=== PATIENT | male | born 1965 | race African-American/Black ===

== ENCOUNTER 2019-12-29 19:04 | Inpatient (IN) | payer OTHER ==
[2019-12-29 20:08] VITALS: BMI 25.7
--- NOTE | 2019-12-29 21:03 | HP ---
CIWA Score - Admission Criteria [facility]ASAS Guidelines: Admission for Medically Managed Detox: Requires at least one of the followin. CIWA greater than 12 2. Seizures within the past 24 hours 3. Delirium tremens within the past 24 hours 4. Hallucinations within the past 24 hours 5. Acute intervention needed for co occurring medical disorder 6. Acute intervention needed for co occurring psychiatric disorder 7. Severe withdrawal that cannot be handled at a lower level of care (continued vomiting, continued diarrhea, abnormal vital signs) requiring intravenous medication and/or fluids 8. Admitting History and Physical - Smoking History Smoking history: Current every day smoker Have you smoked in the past 12 months: Yes Aproximately how many cigarettes per day: 10 Admission ROS [facility] - HPI Allergies/Adverse Reactions: Allergies Allergy/AdvReac Type Severity Reaction Status Date / Time Penicillins Allergy Verified 12/29/19 19:55 tomato Allergy Verified 12/29/19 19:55 History of Present Illness: 54 y.o. male requesting rehab from cocaine , cannabis and alcohol use, completed detox today , direct transfer s/p hospitalization -12/28 . Utox + cannabis, + cocaine during most recent hospital admission . CXR 12/27/2019 RLL opacity w/ R pleural effusion CT chest 12/26 acute frx posterolateral ribs Xth and XIth RIGHT , old bilateral rib frx. EKG 12/26/2019 NSR QTc 438 ms PMHX : rib frx 2/2 fall while intoxicated 10 days ago , r leg frx 7 mo ago went to [facility] refused tx 2/2 fear of amputation , has been utilizing cane ever since , asthma , chronic bronchitis , SAD , CAP , COPD , fatty liver , CAD 2/2 [place] x 2 (may 2019) PSHX : Left leg 2/2 basketball injury Meds : see list CoV-2 PCR not detected 12/26/2019 blood work done 12/27/2019 - reviewed , sig AST 65, ALT 57 , CK TRENDING DOWN 752 12/25 , 408 12/26 Exam Limitations: No Limitations - Review of Systems Constitutional: Loss of Appetite, Unintentional Wgt. Loss EENT: reports: No Symptoms Reported, Other (nose frx 15 yrs ago boxing) Respiratory: reports: Cough, Shortness of Breath, Productive cough (dx CAP) Cardiac: reports: See HPI GI: reports: Constipated, Poor Appetite, Vomiting (w/ alcohol use) : reports: No Symptoms Reported Musculoskeletal: reports: Joint Pain, Joint Swelling (Right knee), Other ( joint deformity right knee) Integumentary: reports: No Symptoms Reported Neuro: reports: Headache Endocrine: reports: No Symptoms Reported Hematology: reports: No Symptoms Reported Psychiatric: reports: Orientated x3 Patient History - Patient Medical History Hx Asthma: Yes Hx Chronic Obstructive Pulmonary Disease (COPD): No Hx Cardiac Disorders: No Hx Hypertension: No Hx Seizures: No Hx Diabetes: No Hx Gastrointestinal Disorders: No Hx Genitourinary Disorders: No Hx Sexually Transmitted Disorders: No Hx Renal Disease (ESRD): No Hx Depression: No Hx Suicide Attempt: No Hx Schizophrenia: Yes - Patient Surgical History Past Surgical History: Yes Hx Neurologic Surgery: No Hx Cardiac Surgery: No Hx Lung Surgery: No Hx Breast Surgery: No Hx Breast Biopsy: No Hx Abdominal Surgery: No Hx Appendectomy: No Hx Cholecystectomy: No Hx Genitourinary Surgery: No Hx Section: No Hx Orthopedic Surgery: Yes (LEFT LEG- 1984) Anesthesia Reaction: No - PPD History Previous Implant?: Yes Documented Results: Negative w/o proof - Smoking Cessation Smoking history: Current every day smoker Have you smoked in the past 12 months: Yes Aproximately how many cigarettes per day: 10 Hx Chewing Tobacco Use: No Initiated information on smoking cessation: Yes 'Breaking Loose' booklet given: 12/29/19 - Substances abused Alcohol Substance route: Oral Frequency: Daily Amount used: liquor- 1.5pts, judit- 1 six pk Age of first use: 11 Date of last use: 12/23/19 Cocaine Substance route: Inhalation Frequency: 1-3 times last 30 days Amount used: 2 bags Age of first use: 22 Date of last use: 11/29/19 Admission Physical Exam BHS - Vital Signs Vital Signs: Vital Signs - 24 hr 12/29/19 19:56 Temperature 97.9 F Pulse Rate 72 Respiratory 18 Rate Blood Pressure 121/78 - Physical General Appearance: Yes: Anxious HEENTM: Yes: EOMI, Hearing grossly Normal, Normocephalic, Normal Voice, Other (nose deformity w/ deviation) Respiratory: Yes: Decreased Breath Sounds, No Respiratory Distress, No Accessory Muscle Use, Rhonchi (scattered), Other (right lower lateral rib frx .) Neck: Yes: No masses,lesions,Nodules, Trachea in good position Cardiology: Yes: Regular Rhythm, Regular Rate, S1, S2 Abdominal: Yes: Non Tender, Soft Back: Yes: Normal Inspection Musculoskeletal: Yes: Joint Stiffness, Joint swelling (right knee w/ deformity of the lower leg , varus and unsteady gait) Extremities: Yes: Swelling (right knee), Other (large deformity right knee , decreased ROM , surgical scar left knee , antalgic gait, limping right .) Neurological: Yes: Alert, Motor Strength 5/5 Integumentary: Yes: Dry, Warm, Other (SUPERFICIAL EXCORIATION RIGHT LATERAL FLANK FROM RECENT FALL W/ KNOWN RIB FRX) - Diagnostic (1) Alcohol use disorder, mild, in early remission Current Visit: Yes Status: Suspected (2) Cocaine use disorder, mild, in early remission Current Visit: Yes Status: Suspected (3) Cannabis use in remission Current Visit: Yes Status: Suspected (4) Nicotine dependence Current Visit: Yes Status: Chronic Qualifiers: Nicotine product type: cigarettes Breathalyzer - Breathalyzer Breathalyzer: 0 Urine Drug Screen - Test Device Lot number: [id number] Expiration date: 12/12/21 - Control Is test valid?: Yes - Results Urine drug screen results: THC-Marijuana, FEN-Fentanyl, OXY-Oxycodone, BZO- Benzodiazepines, BUP-Suboxone Inpatient Rehab Admission - Rehab Decision to Admit Inpatient rehab admission?: Yes - Initial Determination Are CD services needed?: Yes Free of communicable disease: No Not in need of hospitalization: Yes - Rehab Admission Criteria Previous failed treatment: Yes Poor recovery environment: Yes Comorbidities: Yes Lacks judgement: Yes Patient is meeting Inpatient Rehab admission criteria:: Yes
[2019-12-29] MEDS ORDERED: PATIENT'S OWN MEDICATION (NON-FORMULARY) (Albuterol Sulfate Inhaler - [Ventolin HFA Inhale PO PRN (21:15)
[2019-12-29] MEDS ORDERED: IBUPROFEN 400 MG TABLET (FP) PO PRN (21:16)
[2019-12-29] MEDS ORDERED: P-EPHED 60MG/TRIPROLIDI 2.5MG TABLET PO PRN (21:16)
[2019-12-29] MEDS ORDERED: MAGNESIUM CITRATE 300 ML BOTTLE PO PRN (21:16)
[2019-12-29] MEDS ORDERED: LOPERAMIDE HCL 2 MG CAPSULE PO PRN (21:16)
[2019-12-29] MEDS ORDERED: MAG HYDROX/AL HYDROX/SIMETH 30 ML UNIT-DOSE CUP PO PRN (21:16)
[2019-12-29] MEDS ORDERED: ACETAMINOPHEN 325 MG TABLET (FP) PO PRN (21:16)
[2019-12-29] MEDS ORDERED: guaiFENesin 200 MG/10 ML 10 ML UNIT-DOSE CUPS PO PRN (21:16)
[2019-12-29] MEDS ORDERED: MAGNESIUM HYDROX 2400MG/30ML ORAL SUSPENSION 30 ML CUP PO PRN (21:16)
[2019-12-29] MEDS: THIAMINE HCL 100 MG TABLET (FP) PO SCH (23:21)
[2019-12-29] MEDS: MELATONIN 5 MG TABLETS PO PRN (23:22)
[2019-12-29] MEDS: BACITRACIN 0.9 GM PACKET TP SCH (23:22)
[2019-12-30] MEDS ORDERED: levoFLOXacin 750 MG TABLET PO SCH (10:00)
[2019-12-30] MEDS: PRENATAL VITAMINS W/ FOLIC ACID TABLET (FP) PO SCH (10:05)
[2019-12-30] MEDS: BACITRACIN 0.9 GM PACKET TP SCH ×2 (10:06→21:12)
--- NOTE | 2019-12-30 11:30 | CONSULT ---
[facility] Psychiatric Consult - Data Date of interview: 12/30/19 Admission source: [facility] Identifying data: Mr Granado is a 54 years old Black male, unemployed receiving SSI, homeless livng in [place] custodial referred from [facility](completed inpatient detox) on 12/29/19 for inpatient rehabilitation treatment for alcohol, cocaine and cannabis Substance Abuse History: Reports history of alcohol, cocaine and marijuana use. Refer to addiction counselor's summary for further information Medical History: Significant for bronchial asthma/COPD, GERD, coronary artery disease, history of myocardial infarction x2, fracture ribs after falls while intoxicated, fracture right leg due to basketball injury in 1984 and orthosurgery for fracture left leg in 1985 while playing handball. Smokes 10 cigaretes daily Psychiatric History: This is patient's first admission to this facilty. He is a poor and unreliable historian. Reports that his first psychiatric contact occured years ago at [facility] for auditory hallucinations. Reports being also at [facility] and [facility]. It is unclear if these admissions were to emergency room or psychiatric inpatient. He said that he would be drunk and woke up in one of these hospitals. 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 He was able to name Zyprexa 10 mg as a psychotropic medication he took couple of month ago. [facility], [address] [place] [address] was [phone]. According to pharmacist, no script for psychotropic medication found but script for oxycodone. Denies previous suicidal attempt. At present, denies experiencing psychotic, manic or depressive symptoms. However, reports slleping poorly Physical/Sexual Abuse/Trauma History: Denies history of abuse as a child or DV relationship as an adult Mental Status Exam - Mental Status Exam Alert and Oriented to: Time (7 month), Place ([place]), Person Cognitive Function: Fair Patient Appearance: Disheveled Mood: Hopeful, Euthymic Patient Behavior: Cooperative Speech Pattern: Clear Voice Loudness: Normal Thought Process: Intact, Goal Oriented Hallucinations: Denies Suicidal Ideation: Denies Homicidal Ideation: Denies Insight/Judgement: Poor Sleep: Poorly Appetite: Poor Muscle strength/Tone: Normal Gait/Station: Other (Uses a cane as ambulatory aid) Psychiatric Findings - Problem List ([place] 1, 2,3) (1) Psychotic disorder Current Visit: Yes Status: Chronic (2) Schizophrenia Current Visit: Yes Status: Ruled-out (3) Substance-induced psychotic disorder Current Visit: Yes Status: Ruled-out (4) Alcohol dependence Current Visit: Yes Status: Acute (5) Cocaine dependence Current Visit: Yes Status: Acute (6) Cannabis dependence Current Visit: Yes Status: Acute (7) Nicotine dependence Current Visit: Yes Status: Chronic (8) Asthma Current Visit: Yes Status: Acute (9) CAD (coronary artery disease) Current Visit: Yes Status: Chronic (10) Myocardial infarction Current Visit: Yes Status: Resolved - Initial Treatment Plan Initial Treatment Plan: 1) Start Seroquel 100 mg po HS. 2) Continue inpatient rehabilitation
[2019-12-30 12:11] LABS: PH,URINE 7.5 (5.0-8.0); URINE APPEARANCE Clear; URINE BILIRUBIN Negative (NEGATIVE); URINE COLOR Yellow; URINE GLUCOSE (UA) Negative (NEGATIVE); URINE KETONE Negative (NEGATIVE); URINE LEUK ESTERASE Trace (NEGATIVE); URINE NITRITE Negative (NEGATIVE); URINE PROTEIN Negative (NEGATIVE)
[2019-12-30] MEDS: ERGOCALCIFEROL (VIT D2) 50,000 UNIT (1.25 MG) CAPSULE PO SCH (13:12)
[2019-12-30] MEDS: PANTOPRAZOLE 40 MG TABLET PO SCH (13:13)
[2019-12-30] MEDS: PATIENT'S OWN MEDICATION (NON-FORMULARY) (Mometasone/Formoterol [Dulera 100 Mcg-5 Mcg Inha IH SCH ×3 (13:13→21:13)
--- NOTE | 2019-12-30 15:00 | PN ---
[facility] Progress Note Note: Patient states he was prescribed Oxycodone 5mg BID for pain due to right rib fracture which he sustained one week ago. Patient has medication bottle which shows he was prescribed 5mg of Oxycodone 5mg BID on 12/29/2019 for one week. Bottle is empty. Patient informed he has prn tylenol and ibuprofen for pain and will not be prescribed Oxycodone while on unit. Discussed with Dr. Slava MD agrees with plan. Vital Signs Period Temp Pulse Resp BP Sys/Still Pulse Ox Last 24 Hr 97.7 F-98.2 F 72-97 18-18 121-132/78-85 95-99 Laboratory Tests 12/30/19 07:55 Urine Color Yellow Urine Appearance Clear Urine pH 7.5 Ur Specific [place] 1.020 Urine Protein Negative Urine Glucose (UA) Negative Urine Ketones Negative Urine Blood Negative Urine Nitrite Negative Urine Bilirubin Negative Urine Urobilinogen 2.0 Ur Leukocyte Esterase Trace
[2019-12-30] MEDS: MELATONIN 5 MG TABLETS PO PRN (21:13)
[2019-12-30] MEDS: THIAMINE HCL 100 MG TABLET (FP) PO SCH (21:13)
[2019-12-31] MEDS ORDERED: PT OWN MED DRAWER 7, Y5N ONE (07:13)
[2019-12-31] MEDS: PATIENT'S OWN MEDICATION (NON-FORMULARY) (Mometasone/Formoterol [Dulera 100 Mcg-5 Mcg Inha IH SCH ×2 (09:32→21:39)
[2019-12-31] MEDS: BACITRACIN 0.9 GM PACKET TP SCH ×2 (09:32→21:39)
[2019-12-31] MEDS: PRENATAL VITAMINS W/ FOLIC ACID TABLET (FP) PO SCH (09:33)
[2019-12-31] MEDS: PANTOPRAZOLE 40 MG TABLET PO SCH (09:33)
[2019-12-31] MEDS: THIAMINE HCL 100 MG TABLET (FP) PO SCH (21:39)
[2019-12-31] MEDS: MELATONIN 5 MG TABLETS PO PRN (21:40)
[2020-01-01] MEDS: BACITRACIN 0.9 GM PACKET TP SCH ×2 (09:36→21:25)
[2020-01-01] MEDS: PATIENT'S OWN MEDICATION (NON-FORMULARY) (Mometasone/Formoterol [Dulera 100 Mcg-5 Mcg Inha IH SCH ×2 (09:36→21:25)
[2020-01-01] MEDS: PANTOPRAZOLE 40 MG TABLET PO SCH (09:37)
[2020-01-01] MEDS: PRENATAL VITAMINS W/ FOLIC ACID TABLET (FP) PO SCH (09:37)
--- NOTE | 2020-01-01 12:42 | PN ---
[facility] Progress Note Note: Patient reports sleeping poorly despite taking Seroquel 100 mg/hs and Melatonin 5 mg/hs prn. Will substitute Belsomra 10 mg/hs prn for insomnia to Melatonin
[2020-01-01] MEDS: THIAMINE HCL 100 MG TABLET (FP) PO SCH (21:25)
[2020-01-01] MEDS: SUVOREXANT 10 MG TABLET PO PRN (21:26)
[2020-01-02] MEDS ORDERED: PT OWN MED DRAWER 7, Y5N ONE ×2 (09:01→11:03)
[2020-01-02] MEDS: BACITRACIN 0.9 GM PACKET TP SCH ×2 (10:14→21:13)
[2020-01-02] MEDS: PRENATAL VITAMINS W/ FOLIC ACID TABLET (FP) PO SCH (10:15)
[2020-01-02] MEDS: PATIENT'S OWN MEDICATION (NON-FORMULARY) (Mometasone/Formoterol [Dulera 100 Mcg-5 Mcg Inha IH SCH ×2 (10:15→21:15)
[2020-01-02] MEDS: PANTOPRAZOLE 40 MG TABLET PO SCH (10:15)
[2020-01-02] MEDS: THIAMINE HCL 100 MG TABLET (FP) PO SCH (21:13)
[2020-01-02] MEDS: SUVOREXANT 10 MG TABLET PO PRN (21:14)
[2020-01-03] MEDS ORDERED: PT OWN MED DRAWER 7, Y5N ONE ×2 (08:44→18:45)
[2020-01-03] MEDS: PANTOPRAZOLE 40 MG TABLET PO SCH (09:38)
[2020-01-03] MEDS: PRENATAL VITAMINS W/ FOLIC ACID TABLET (FP) PO SCH (09:38)
[2020-01-03] MEDS: BACITRACIN 0.9 GM PACKET TP SCH ×2 (09:40→21:35)
[2020-01-03] MEDS: PATIENT'S OWN MEDICATION (NON-FORMULARY) (Mometasone/Formoterol [Dulera 100 Mcg-5 Mcg Inha IH SCH ×2 (09:41→21:35)
[2020-01-03] MEDS: THIAMINE HCL 100 MG TABLET (FP) PO SCH (21:35)
[2020-01-04] MEDS: PRENATAL VITAMINS W/ FOLIC ACID TABLET (FP) PO SCH (10:08)
[2020-01-04] MEDS: PANTOPRAZOLE 40 MG TABLET PO SCH (10:08)
[2020-01-04] MEDS: hydrOXYzine PAMOATE 25 MG CAPSULE (FP) PO PRN ×2 (10:10→21:41)
[2020-01-04] MEDS: BACITRACIN 0.9 GM PACKET TP SCH ×2 (10:10→21:41)
[2020-01-04] MEDS: PATIENT'S OWN MEDICATION (NON-FORMULARY) (Mometasone/Formoterol [Dulera 100 Mcg-5 Mcg Inha IH SCH ×2 (10:11→21:41)
[2020-01-04] MEDS: THIAMINE HCL 100 MG TABLET (FP) PO SCH (21:41)
[2020-01-04] MEDS ORDERED: SUVOREXANT 10 MG TABLET PO PRN (22:00)
[2020-01-05] MEDS ORDERED: METHOCARBAMOL 500 MG TABLET PO PRN (08:47)
[2020-01-05] MEDS: BACITRACIN 0.9 GM PACKET TP SCH ×2 (09:07→21:18)
[2020-01-05] MEDS: PRENATAL VITAMINS W/ FOLIC ACID TABLET (FP) PO SCH (09:07)
[2020-01-05] MEDS: PANTOPRAZOLE 40 MG TABLET PO SCH (09:08)
[2020-01-05] MEDS: PATIENT'S OWN MEDICATION (NON-FORMULARY) (Mometasone/Formoterol [Dulera 100 Mcg-5 Mcg Inha IH SCH ×2 (09:09→21:18)
[2020-01-05] MEDS ORDERED: PT OWN MED DRAWER 7, Y5N ONE (09:09)
--- NOTE | 2020-01-05 15:46 | PN ---
[facility] Progress Note Note: Pt c/o body aches and rib pain s/p injuries due to "Racoon jumping on me". Reports broken ribs and went to the [facility] for care weeks ago before coming here. Vital Signs - 24 hr 01/04/20 01/05/20 01/05/20 20:35 06:35 15:27 Temperature 98.0 F 97.7 F Pulse Rate 76 Respiratory 18 Rate Blood Pressure 124/92 O2 Sat by Pulse 98 97 96 Oximetry (%) Alert o x 3 nad oob ambulating with steady gait Active FROM all extremities A:Body pain Robaxin 500 mg po TID Motrin prn as directed
--- NOTE | 2020-01-05 17:22 | PN ---
Psychiatric Progress Note Vital Signs: Vital Signs Period Temp Pulse Resp BP Sys/Still Pulse Ox Last 24 Hr 97.7 F-98.0 F 76 18 124/92 96-98 Date of Session: 01/05/20 Chief Complaint:: " I'm not sleeping well." HPI: Patient admitted to [facility] for treatment of alcohol, cocaine and cannabis. Consultation ordered due to insomnia. ROS: Patient is ambulatory, alert +oriented X3. Current Medications: Active Medications Generic Name Dose Route Start Last Admin Trade Name Freq PRN Reason Stop Dose Admin Acetaminophen 650 mg 12/29/19 21:16 Tylenol - PO Q4H PRN FEVER Al Hydroxide/Mg Hydroxide 30 ml 12/29/19 21:16 Mylanta Oral Suspension - PO Q6H PRN DYSPEPSIA Bacitracin 0.9 gm 12/29/19 22:00 01/05/20 09:07 Bacitracin - TP 0.9 gm BID CHLOÉ Administration Ergocalciferol 50,000 unit 12/30/19 10:00 12/30/19 13:12 Drisdol - PO 50,000 unit Fr@1000 CHLOÉ Administration Guaifenesin 10 ml 12/29/19 21:16 Robitussin - PO Q6H PRN COUGH Hydroxyzine Pamoate 25 mg 12/29/19 21:16 01/04/20 21:41 Vistaril - PO 25 mg Q4H PRN Administration ANXIETY Ibuprofen 400 mg 12/29/19 21:16 Motrin - PO Q6H PRN Pain level 4-6 Loperamide HCl 4 mg 12/29/19 21:16 Imodium - PO Q6H PRN DIARRHEA Magnesium Citrate 300 ml 12/29/19 21:16 Citroma - PO Q48H PRN CONSTIPATION Magnesium Hydroxide 30 ml 12/29/19 21:16 Milk Of Magnesia - PO DAILY PRN CONSTIPATION Methocarbamol 500 mg 01/05/20 08:47 Robaxin - PO TID PRN MUSCLE SPASMS Non-Formulary Medication 2 inh 12/29/19 21:15 Albuterol Sulfate Inhaler - [Ventolin Hfa Inhaler -] PO Q6HPO PRN SHORTNESS OF BREATH Non-Formulary Medication 2 inh 12/29/19 22:00 01/05/20 09:09 Mometasone/Formoterol [Dulera 100 Mcg-5 Mcg Inhaler] IH 2 inh BID CHLOÉ Administration Pantoprazole Sodium 40 mg 12/30/19 10:00 01/05/20 09:08 Protonix - PO 40 mg DAILY CHLOÉ Administration Multivit/Folic Acid/Iron 1 tab 12/30/19 10:00 01/05/20 09:07 Vitamins (Sjr) - PO 1 tab DAILY CHLOÉ Administration Pseudoephedrine/Triprolidine 1 combo 12/29/19 21:16 Actifed - PO TID PRN NASAL CONGESTION Quetiapine Fumarate 100 mg 01/05/20 22:00 Seroquel - PO HS CHLOÉ Suvorexant 10 mg 01/04/20 22:00 Belsomra PO HS PRN INSOMNIA Thiamine HCl 100 mg 12/29/19 22:00 01/04/20 21:41 Vitamin B1 - PO 100 mg HS CHLOÉ Administration Medication(s) Change(s): Yes. 1) Will d/c Belsomra 10mg HS PRN 2) Will order Belsomra 15mg HS PRN. Current Side Effect: No Lab tests ordered: No Lab tests reviewed: Yes Provider note:: Patient reports poor sleep despite accepting Belsorma 10mg HS. States to public relations writer that the medication is not effective and is requesting an increase. Will d/c Belsomra 10mg HS PRN and will order Belsomra 15mg HS PRN. Patient also educated on the importance of proper sleep hygiene. Patient satified and receptive to feedback. Benefits and side effects discussed. Verbal consent given. Total face to face time:: 20 Mental Status Exam - Mental Status Exam Alert and Oriented to: Time, Place, Person Cognitive Function: Good Patient Appearance: Well Groomed Mood: Hopeful Affect: Appropriate Patient Behavior: Appropriate, Cooperative Speech Pattern: Appropriate Voice Loudness: Normal Thought Process: Goal Oriented Thought Disorder: Not Present Hallucinations: Denies Suicidal Ideation: Denies Homicidal Ideation: Denies Insight/Judgement: Poor Sleep: Poorly Appetite: Fair Muscle strength/Tone: Normal Gait/Station: Normal Psychiatric Treatment Plan - Problem List (1) Alcohol dependence Current Visit: Yes (2) Cannabis dependence Current Visit: Yes (3) Cocaine dependence Current Visit: Yes (4) Nicotine dependence Current Visit: Yes (5) Psychotic disorder Current Visit: Yes (6) Schizophrenia Current Visit: Yes
[2020-01-05] MEDS: QUEtiapine FUMARATE 100 MG TABLET (FP) PO SCH (21:19)
[2020-01-05] MEDS: hydrOXYzine PAMOATE 25 MG CAPSULE (FP) PO PRN (21:19)
[2020-01-05] MEDS: THIAMINE HCL 100 MG TABLET (FP) PO SCH (21:19)
[2020-01-05] MEDS ORDERED: SUVOREXANT 15 MG TABLET PO PRN (22:00)
[2020-01-06] MEDS ORDERED: PT OWN MED DRAWER 7, Y5N ONE ×3 (08:51→20:35)
[2020-01-06] MEDS: ERGOCALCIFEROL (VIT D2) 50,000 UNIT (1.25 MG) CAPSULE PO SCH (10:01)
[2020-01-06] MEDS: PRENATAL VITAMINS W/ FOLIC ACID TABLET (FP) PO SCH (10:01)
[2020-01-06] MEDS: PANTOPRAZOLE 40 MG TABLET PO SCH (10:01)
[2020-01-06] MEDS: PATIENT'S OWN MEDICATION (NON-FORMULARY) (Mometasone/Formoterol [Dulera 100 Mcg-5 Mcg Inha IH SCH ×2 (10:02→21:20)
[2020-01-06] MEDS: BACITRACIN 0.9 GM PACKET TP SCH ×2 (10:03→21:20)
[2020-01-06] MEDS: THIAMINE HCL 100 MG TABLET (FP) PO SCH (21:19)
[2020-01-06] MEDS: QUEtiapine FUMARATE 100 MG TABLET (FP) PO SCH (21:20)
[2020-01-07] MEDS ORDERED: PT OWN MED DRAWER 7, Y5N ONE (09:24)
[2020-01-07] MEDS: PANTOPRAZOLE 40 MG TABLET PO SCH (09:51)
[2020-01-07] MEDS: PATIENT'S OWN MEDICATION (NON-FORMULARY) (Mometasone/Formoterol [Dulera 100 Mcg-5 Mcg Inha IH SCH ×2 (09:51→21:54)
[2020-01-07] MEDS: PRENATAL VITAMINS W/ FOLIC ACID TABLET (FP) PO SCH (09:51)
[2020-01-07] MEDS: BACITRACIN 0.9 GM PACKET TP SCH ×2 (09:52→21:54)
[2020-01-07] MEDS: QUEtiapine FUMARATE 100 MG TABLET (FP) PO SCH (21:55)
[2020-01-07] MEDS: THIAMINE HCL 100 MG TABLET (FP) PO SCH (21:56)
[2020-01-08] MEDS: BACITRACIN 0.9 GM PACKET TP SCH ×2 (09:26→21:17)
[2020-01-08] MEDS: PRENATAL VITAMINS W/ FOLIC ACID TABLET (FP) PO SCH (09:26)
[2020-01-08] MEDS: PANTOPRAZOLE 40 MG TABLET PO SCH (09:26)
[2020-01-08] MEDS: PATIENT'S OWN MEDICATION (NON-FORMULARY) (Mometasone/Formoterol [Dulera 100 Mcg-5 Mcg Inha IH SCH ×2 (09:27→21:17)
[2020-01-08] MEDS ORDERED: PT OWN MED DRAWER 7, Y5N ONE ×2 (09:28→18:18)
--- NOTE | 2020-01-08 14:30 | PN ---
[facility] Progress Note Note: Psychiatric nurse practitioner note: Belsomra 15mg HS PRN renewed X3 days.
[2020-01-08] MEDS: THIAMINE HCL 100 MG TABLET (FP) PO SCH (21:18)
[2020-01-08] MEDS: QUEtiapine FUMARATE 100 MG TABLET (FP) PO SCH (21:18)
[2020-01-08] MEDS: SUVOREXANT 15 MG TABLET PO PRN (21:19)
[2020-01-09] MEDS: BACITRACIN 0.9 GM PACKET TP SCH ×2 (10:13→21:54)
[2020-01-09] MEDS: PANTOPRAZOLE 40 MG TABLET PO SCH (10:13)
[2020-01-09] MEDS: PRENATAL VITAMINS W/ FOLIC ACID TABLET (FP) PO SCH (10:13)
[2020-01-09] MEDS: PATIENT'S OWN MEDICATION (NON-FORMULARY) (Mometasone/Formoterol [Dulera 100 Mcg-5 Mcg Inha IH SCH ×2 (10:14→21:54)
[2020-01-09] MEDS ORDERED: PT OWN MED DRAWER 7, Y5N ONE (10:18)
[2020-01-09] MEDS: THIAMINE HCL 100 MG TABLET (FP) PO SCH (21:54)
[2020-01-09] MEDS: QUEtiapine FUMARATE 100 MG TABLET (FP) PO SCH (21:54)
[2020-01-09] MEDS: SUVOREXANT 15 MG TABLET PO PRN (21:56)
[2020-01-10] MEDS: PANTOPRAZOLE 40 MG TABLET PO SCH (10:14)
[2020-01-10] MEDS: BACITRACIN 0.9 GM PACKET TP SCH ×2 (10:14→21:11)
[2020-01-10] MEDS: PRENATAL VITAMINS W/ FOLIC ACID TABLET (FP) PO SCH (10:14)
[2020-01-10] MEDS: PATIENT'S OWN MEDICATION (NON-FORMULARY) (Mometasone/Formoterol [Dulera 100 Mcg-5 Mcg Inha IH SCH ×2 (10:15→21:10)
[2020-01-10] MEDS: THIAMINE HCL 100 MG TABLET (FP) PO SCH (21:11)
[2020-01-10] MEDS: QUEtiapine FUMARATE 100 MG TABLET (FP) PO SCH (21:11)
[2020-01-10] MEDS: SUVOREXANT 15 MG TABLET PO PRN (23:15)
[2020-01-11] MEDS: hydrOXYzine PAMOATE 25 MG CAPSULE (FP) PO PRN (10:11)
[2020-01-11] MEDS: BACITRACIN 0.9 GM PACKET TP SCH ×2 (10:11→21:23)
[2020-01-11] MEDS: PRENATAL VITAMINS W/ FOLIC ACID TABLET (FP) PO SCH (10:11)
[2020-01-11] MEDS: PANTOPRAZOLE 40 MG TABLET PO SCH (10:11)
[2020-01-11] MEDS: PATIENT'S OWN MEDICATION (NON-FORMULARY) (Mometasone/Formoterol [Dulera 100 Mcg-5 Mcg Inha IH SCH ×2 (10:13→21:23)
--- NOTE | 2020-01-11 15:15 | PN ---
[facility] Progress Note Note: Patient is scheduled for discharge tomorrow. Script for 30 days supply of Seroquel 100 mg/hs will be electronically transmitted to [facility], [address] [place] [id number]
[2020-01-11] MEDS: QUEtiapine FUMARATE 100 MG TABLET (FP) PO SCH (21:23)
[2020-01-11] MEDS: SUVOREXANT 15 MG TABLET PO PRN (21:24)
[2020-01-11] MEDS: THIAMINE HCL 100 MG TABLET (FP) PO SCH (21:25)
[2020-01-11] MEDS ORDERED: SUVOREXANT 15 MG TABLET PO PRN (22:00)
[2020-01-12 06:59] VITALS: BP 143/87; PULSE 73; TEMP 98.4
--- NOTE | 2020-01-12 08:42 | DS ---
[facility] Rehab Discharge Summary - [facility] Rehab Discharge Summary Admission Date: 12/29/19 Discharge Date: 01/12/20 - History Present History: Alcohol dependence, Cannabis dependence, Cocaine dependence Pertinent Past History: 54 y.o. male requesting rehab from cocaine, cannabis,and alcohol use, completed detox, direct transfer s/p hospitalization -12/28 . CXR 12/27/2019 RLL opacity w/ R pleural effusion CT chest 12/26 acute frx posterolateral ribs Xth and XIth RIGHT , old bilateral rib frx. EKG 12/26/2019 NSR QTc 438 ms PMHX : rib frx 2/2 fall while intoxicated r leg frx 7 mo ago went to [facility] refused tx 2/2 fear of amputation , has been utilizing cane,asthma,chronic bronchitis, SAD , CAP, COPD, fatty liver, CAD 2/2 MD x 2 (may 2019) PSHX : Left leg 2/2 basketball injury - Discharge Physical Exam Vital Signs: Vital Signs Temperature 98.4 F 01/12/20 06:19 Pulse Rate 73 01/12/20 06:19 Respiratory Rate 18 01/12/20 06:19 Blood Pressure 143/87 01/12/20 06:19 O2 Sat by Pulse Oximetry (%) 99 01/12/20 06:19 Pertinent Admission Physical Exam Findings: Physical General Appearance: No apparent distress HEENTM: EOMI, Normocephalic, Respiratory: No Respiratory Distress, Neck: supple Abdominal: +BS, Non Tender, Soft Musculoskeletal: Joint Stiffness, Joint swelling Neurological: Alert, Motor Strength 5/5 - Treatment Discharge Condition: Discharge condition good (medically stable for discharge.), Outpatient referral accepted (Patient will go to [facility]) Hospital Course: Patient attended groups, he had a 1:1 with his counselor, and was seen by the psychiatric service. He was adherent to his medication regimen and treatment plan. He was treated for pain while in rehab with good effect. - Medication Discharge Medications: Ambulatory Orders levoFLOXacin [Levaquin] 750 mg PO DAILY 12/29/19 Quetiapine Fumarate [Seroquel -] 100 mg PO HS #30 tablet 01/11/20 Albuterol Sulfate Inhaler - [Ventolin HFA Inhaler -] 2 inh IH Q6H #1 inhaler 01/12/20 Ergocalciferol (Vitamin D2) [Drisdol] 1,250 mcg PO WEEKLY #1 cap 01/12/20 Mometasone/Formoterol [Dulera 100 Mcg-5 Mcg Inhaler] 2 inh IH BID #1 inhaler 01/12/20 Pantoprazole Sodium [Protonix -] 40 mg PO DAILY #14 tab 01/12/20 Sennosides/Docusate Sodium [Senna Plus 8.6-50 mg Tablet] 8.6 mg PO DAILY #14 tablet 01/12/20 - Medication-Assisted Treatment (MAT) Medication-Assisted Treatment (MAT): No - Discharge Instructions Diet, activity, other medical instructions: Diet:as tolerated Activity: as tolerated Other medical instructions: Please follow up with aftercare referral. - Diagnosis (1) Alcohol dependence Current Visit: Yes Status: Chronic (2) Cannabis dependence Current Visit: Yes Status: Chronic (3) Cocaine dependence Current Visit: Yes Status: Chronic - Follow-up Referral Minutes to complete discharge: 15 - AMA Did Patient Leave Against Medical Advice: No
[2020-01-12] MEDS ORDERED: PT OWN MED DRAWER 7, Y5N ONE (08:52)
[2020-01-12] MEDS: PANTOPRAZOLE 40 MG TABLET PO SCH (09:04)
[2020-01-12] MEDS: BACITRACIN 0.9 GM PACKET TP SCH (09:04)
[2020-01-12] MEDS: PRENATAL VITAMINS W/ FOLIC ACID TABLET (FP) PO SCH (09:04)
[2020-01-12] MEDS: PATIENT'S OWN MEDICATION (NON-FORMULARY) (Mometasone/Formoterol [Dulera 100 Mcg-5 Mcg Inha IH SCH (09:04)
== END 2020-01-12 09:41 | disposition home or self-care (01) | DRG 774 ==
LOC: YASAS 19:04 → Y3W 20:35
PROVIDERS: ADMIT Allergy & Immunology; ATTEND Allergy & Immunology
DX: F10.20 Alcohol dependence, uncomplicated (principal); F14.20 Cocaine dependence, uncomplicated; F12.20 Cannabis dependence, uncomplicated; F17.210 Nicotine dependence, cigarettes, uncomplicated; I25.10 Atherosclerotic heart disease of native coronary artery without angina pectoris; I25.2 Old myocardial infarction; J42 Unspecified chronic bronchitis; J45.909 Unspecified asthma, uncomplicated; K21.9 Gastro-esophageal reflux disease without esophagitis; R26.89 Other abnormalities of gait and mobility; Z99.89 Dependence on other enabling machines and devices; Z88.0 Allergy status to penicillin; Z91.018 Allergy to other foods; Z56.0 Unemployment, unspecified; Z59.0 Homelessness
CPT/HCPCS: 36415; 81003; 85660; 86780

== ENCOUNTER 2021-10-13 15:04 | Inpatient (IN) | payer OTHER ==
[2021-10-13 15:29] VITALS: BMI 23.8
[2021-10-14] MEDS ORDERED: DICYCLOMINE HCL 10 MG CAPSULE PO PRN (04:32)
[2021-10-14] MEDS ORDERED: ONDANSETRON *ODT* 4 MG TABLET SL PRN (04:32)
[2021-10-14] MEDS ORDERED: ACETAMINOPHEN 325 MG TABLET (FP) PO PRN ×2 (04:32)
[2021-10-14] MEDS ORDERED: MAGNESIUM CITRATE 300 ML BOTTLE PO PRN (04:32)
[2021-10-14] MEDS ORDERED: BENZOCAINE/MENTHOL (CHLORASEPTIC ) LOZENGE MM PRN (04:32)
[2021-10-14] MEDS ORDERED: chlordiazePOXIDE HCL 25 MG CAPSULE PO PRN (04:32)
[2021-10-14] MEDS ORDERED: NICOTINE 10 MG CARTRIDGE (INHALER) IH PRN (04:32)
[2021-10-14] MEDS ORDERED: BISMUTH SUBSALICYLATE 524 MG/30 ML PO PRN (04:32)
[2021-10-14] MEDS ORDERED: MAG HYDROX/AL HYDROX/SIMETH 30 ML UNIT-DOSE CUP PO PRN (04:32)
[2021-10-14] MEDS ORDERED: LOPERAMIDE HCL 2 MG CAPSULE PO PRN (04:32)
[2021-10-14] MEDS ORDERED: MAGNESIUM HYDROX 2400MG/30ML ORAL SUSPENSION 30 ML CUP PO PRN (04:32)
[2021-10-14] MEDS ORDERED: IBUPROFEN 400 MG TABLET (FP) PO PRN (04:32)
[2021-10-14] MEDS ORDERED: IBUPROFEN 600 MG TABLET (FP) PO PRN (04:32)
[2021-10-14] MEDS: chlordiazePOXIDE HCL 25 MG CAPSULE PO SCH ×4 (06:14→22:28)
[2021-10-14] MEDS: METHOCARBAMOL 500 MG TABLET PO PRN (10:32)
[2021-10-14] MEDS: PRENATAL VITAMINS W/ FOLIC ACID TABLET (FP) PO SCH (10:32)
[2021-10-14] MEDS: NICOTINE 14 MG/24 HOURS TOPICAL PATCH TD SCH (10:32)
[2021-10-14] MEDS: THIAMINE HCL 100 MG TABLET (FP) PO SCH (22:28)
[2021-10-14] MEDS: MELATONIN 5 MG TABLETS PO SCH (22:28)
[2021-10-15] MEDS: chlordiazePOXIDE HCL 25 MG CAPSULE PO SCH ×4 (06:27→22:33)
[2021-10-15] MEDS: METHOCARBAMOL 500 MG TABLET PO PRN (10:51)
[2021-10-15] MEDS: PRENATAL VITAMINS W/ FOLIC ACID TABLET (FP) PO SCH (10:51)
[2021-10-15] MEDS: NICOTINE 14 MG/24 HOURS TOPICAL PATCH TD SCH (10:52)
[2021-10-15 14:10] LABS: HEMATOCRIT 35.5 % (35.4-49); HEMOGLOBIN 11.5 GM/dL (11.7-16.9); MCH 28.6 pg (25.7-33.7); MCHC 32.5 g/dl (32.0-35.9); MEAN PLT VOLUME 9.1 fl (7.5-11.1); PLATELET COUNT 175 10^3/uL (134-434); RBC 4.03 M/mm3 (4.00-5.60); WHITE BLOOD COUNT 4.4 K/mm3 (4.0-10.0)
[2021-10-15 14:26] LABS: BLOOD UREA NITROGEN 9.2 mg/dL (7-18); CALCIUM 8.8 mg/dL (8.5-10.1)
[2021-10-15 14:29] LABS: CREATININE 0.6 mg/dL (0.55-1.3)
[2021-10-15 14:31] LABS: BILIRUBIN,TOTAL 0.7 mg/dL (0.2-1); TOT PROT 6.4 g/dl (6.4-8.2)
[2021-10-15] MEDS: THIAMINE HCL 100 MG TABLET (FP) PO SCH (22:33)
[2021-10-15] MEDS: MELATONIN 5 MG TABLETS PO SCH (22:33)
[2021-10-16] MEDS ORDERED: chlordiazePOXIDE HCL 10 MG CAPSULE PO PRN
[2021-10-16] MEDS: chlordiazePOXIDE HCL 10 MG CAPSULE PO SCH ×4 (06:11→22:46)
[2021-10-16] MEDS: PRENATAL VITAMINS W/ FOLIC ACID TABLET (FP) PO SCH (11:28)
[2021-10-16] MEDS: NICOTINE 14 MG/24 HOURS TOPICAL PATCH TD SCH (11:28)
[2021-10-16] MEDS: METHOCARBAMOL 500 MG TABLET PO PRN ×2 (11:28→22:45)
[2021-10-16] MEDS: MELATONIN 5 MG TABLETS PO SCH (22:45)
[2021-10-16] MEDS: THIAMINE HCL 100 MG TABLET (FP) PO SCH (22:46)
[2021-10-17] MEDS: chlordiazePOXIDE HCL 10 MG CAPSULE PO SCH ×2 (06:28→18:08)
[2021-10-17] MEDS: PRENATAL VITAMINS W/ FOLIC ACID TABLET (FP) PO SCH (10:13)
[2021-10-17] MEDS: METHOCARBAMOL 500 MG TABLET PO PRN ×2 (10:13→22:59)
[2021-10-17] MEDS: NICOTINE 14 MG/24 HOURS TOPICAL PATCH TD SCH (10:14)
[2021-10-17] MEDS: THIAMINE HCL 100 MG TABLET (FP) PO SCH (22:59)
[2021-10-17] MEDS: MELATONIN 5 MG TABLETS PO SCH (22:59)
[2021-10-18] MEDS ORDERED: chlordiazePOXIDE HCL 10 MG CAPSULE PO ONE (05:00)
[2021-10-18 09:45] VITALS: BP 125/82; PULSE 76; TEMP 96.9
[2021-10-18] MEDS: PRENATAL VITAMINS W/ FOLIC ACID TABLET (FP) PO SCH (10:05)
[2021-10-18] MEDS: NICOTINE 14 MG/24 HOURS TOPICAL PATCH TD SCH (10:06)
== END 2021-10-18 10:50 | disposition home or self-care (01) | DRG 774 ==
LOC: YASAS 15:04 → Y6N 10-14 03:33
PROVIDERS: ADMIT Allergy & Immunology; ATTEND Surgery
PROC: HZ2ZZZZ Detoxification Services for Substance Abuse Treatment (ICD-10-PCS; principal; 2021-10-14)
DX: F10.230 Alcohol dependence with withdrawal, uncomplicated (principal); F14.20 Cocaine dependence, uncomplicated; F12.20 Cannabis dependence, uncomplicated; F17.210 Nicotine dependence, cigarettes, uncomplicated; F20.9 Schizophrenia, unspecified; I25.10 Atherosclerotic heart disease of native coronary artery without angina pectoris; I25.2 Old myocardial infarction; K21.9 Gastro-esophageal reflux disease without esophagitis; J44.9 Chronic obstructive pulmonary disease, unspecified; N50.89 Other specified disorders of the male genital organs; Z99.89 Dependence on other enabling machines and devices; Z88.0 Allergy status to penicillin; Z91.018 Allergy to other foods
CPT/HCPCS: 36415; 71046-TC-FY; 80053; 85027; 86780; C9803-CS; U0003; U0005

== ENCOUNTER 2021-10-13 18:05 | Emergency (ER) | payer OTHER ==
[2021-10-13 18:12] VITALS: TEMP 97; BMI 23.9
[2021-10-13 22:55] LABS: URINE APPEARANCE CLEAR; URINE BILIRUBIN NEGATIVE (NEGATIVE); URINE COLOR YELLOW; URINE GLUCOSE (UA) NEGATIVE (NEGATIVE); URINE KETONE NEGATIVE (NEGATIVE); URINE LEUK ESTERASE NEGATIVE (NEGATIVE); URINE NITRITE NEGATIVE (NEGATIVE); URINE PROTEIN NEGATIVE (NEGATIVE); URINE UROBILINOGEN 4.0 E.U/dl mg/dL (0.2-1.0)
[2021-10-14 00:48] LABS: BASO % 0.6 % (0-2.0); EOS % 1.5 % (0-4.5); HEMATOCRIT 35.9 % (35.4-49); HEMOGLOBIN 12.2 GM/dL (11.7-16.9); LYMPH % 22.1 % (8-40); MCH 29.2 pg (25.7-33.7); MONO % 10.6 % (3.8-10.2); NEUT % 65.2 % (42.8-82.8); PLATELET COUNT 179 10^3/uL (134-434); RBC 4.18 M/mm3 (4.00-5.60); RDW 15.9 % (11.9-15.9); WHITE BLOOD COUNT 4.9 K/mm3 (4.0-10.0)
[2021-10-14 01:06] LABS: CALCIUM 8.8 mg/dL (8.5-10.1)
[2021-10-14 01:07] LABS: ALBUMIN 3.3 g/dl (3.4-5.0); BLOOD UREA NITROGEN 4.9 mg/dL (7-18)
[2021-10-14 01:10] LABS: CREATININE 0.6 mg/dL (0.55-1.3)
[2021-10-14 01:12] LABS: TOT PROT 7.3 g/dl (6.4-8.2)
[2021-10-14 03:06] VITALS: BP 148/70; PULSE 74
== END 2021-10-14 03:41 | disposition home or self-care (01) ==
LOC: JER 18:05
DX: N50.819 Testicular pain, unspecified (principal)
CPT/HCPCS: 36415; 76870-TC; 80053; 81003; 85025; 87086; 99284-25